=== PATIENT | female | born 2000 | race Caucasian/White ===

== ENCOUNTER 2025-07-17 22:11 | Emergency (ER) | payer BC, SELFPAY ==
[2025-07-17 22:14] VITALS: BP 139/80
[2025-07-17 22:30] LABS: Urine Character Clear (Clear)
[2025-07-17 22:47] LABS: Urine Red Blood Cell 0-2 /HPF (0-2); Urine White Cell 0-2 /HPF (0-5)
[2025-07-17 23:59] VITALS: BMI 23.9
[2025-07-18 00:44] LABS: Hematocrit 42.3 % (37.0-47.0); Hemoglobin 14.3 g/dL (12.0-16.0); Mean Corp Hgb Conc. 33.8 g/dL (33.0-37.0); Mean Corpuscular Volume 92.4 fL (81.0-99.0); Nucleated Red Blood Cells % 0 %; Platelet Count 163 10^3/uL (130-400); Red Cell Dist. Width 13.0 % (11.5-14.5)
[2025-07-18 00:45] LABS: HCG, Serum Qualitative Screen Negative
[2025-07-18 00:55] LABS: ALT (SGPT) 23 U/L (0-35); AST (SGOT) 25 U/L (14-36); Albumin 4.9 g/dl (3.5-5.0); Alkaline Phosphatase 69 U/L (38-126); Blood Urea Nitrogen 14 mg/dl (7-17); Calcium 9.9 mg/dl (8.4-10.2); Carbon Dioxide 29 mmol/L (22-30); Chloride 102 mmol/L (98-107); Estimated Creatinine Clearance 109 ml/min; Glucose 99 mg/dl (70-99); Potassium 4.0 mmol/L (3.5-5.1); Sodium 138 mmol/L (135-145); Total Protein 7.4 g/dl (6.3-8.2); eGFR > 60.00
[2025-07-18 01:01] LABS: COVID-19 Antigen Negative (Negative)
--- NOTE | 2025-07-18 01:15 | ED.GENMED ---
History of Present Illness
General
Chief Complaint: Urinary Symptoms
Source: patient and family
Exam Limitations: none
Time Seen by Provider: 07/17/25 23:42
Nursing documentation reviewed up to this point in time: agreed with
History of Present Illness
History of Present Illness:
Note:
CHIEF COMPLAINT(S)
- Fever and dysuria
HISTORY OF PRESENT ILLNESS
The patient is a 24-year-old female presenting with symptoms indicative of a urinary tract infection (UTI) since Monday. She reports initially experiencing significant dysuria and difficulty sleeping, which prompted a visit to urgent care. At
urgent care, a urine analysis did not reveal bacteriuria, but a culture was performed. The patient was initially prescribed nitrofurantoin. However, she noted that the medication alleviated symptoms only partially; she continued to experience
suprapubic discomfort. Consequently, the treatment was switched to amoxicillin, which she took this morning at 7 AM, and later to sulfamethoxazole/trimethoprim at 9 AM. Following the medication switch, the patient began feeling lightheaded,
flu-like, and developed a low-grade fever of approximately 99�F along with skin flushing sensations. She consulted her primary care provider, who recommended the switch to sulfamethoxazole/trimethoprim. They advised waiting for urine culture results
before making further changes to her medication regimen. The patient was concerned whether her symptoms were a reaction to the medications or an extension of the infection.
The healthcare provider advised performing flu and COVID testing as a precaution and discussed the potential for drawing blood work to assess for sepsis-like syndrome due to her immunocompromised status. The plan included awaiting the results of the
urine culture, and if unavailable, continuing nitrofurantoin under the assumption of an adverse reaction to sulfamethoxazole/trimethoprim, which might settle post discontinuation.
PAST MEDICAL AND SURGICAL HISTORY
No additional details provided.
EXTERNAL RECORDS REVIEWED
Petition notes that the last urine culture had not revealed bacterial growth but was pending re-evaluation. No further external records were mentioned.
SOCIAL HISTORY
The patient has a history of immunocompromise (specific nature undisclosed).
-
Dysuria, suprapubic discomfort.
- Constitutional: Low-grade fever, flu-like symptoms.
- Neurological: Lightheadedness.
- Skin: Flushing sensations.
PHYSICAL EXAM
General: Alert, in no acute distress.
Skin: Warm, dry.
Head: Normocephalic, atraumatic.
Neck: Supple, trachea midline.
Eyes, Ears, Nose, Mouth and Throat: Oral mucosa moist.
Cardiovascular: Normal peripheral perfusion, No edema.
Respiratory: Respirations are non-labored.
Gastrointestinal: Abdomen nondistended.
Back: Normal range of motion, Normal alignment.
Musculoskeletal: Normal range of motion, normal strength.
Neurological: Alert and oriented to person, place, time, and situation. No focal neurological deficit observed.
Psychiatric: Cooperative, appropriate mood & affect.
PROBLEM LIST
Acute Problems:
- Urinary tract infection
- Possible medication reaction
- Low-grade fever
PLAN
- Perform flu and COVID testing.
- Consideration for blood work to check for sepsis-related syndrome due to patients immunocompromised status.
- Await urine culture results to determine the effectiveness of antibiotic treatment and adjust accordingly.
- Continue current treatment regimen if no culture results are available and manage symptoms as an adverse medication reaction.
- Educate patient on symptoms of worsening condition and when to seek further medical attention.
DIFFERENTIAL DIAGNOSIS
The Differential Diagnosis includes, in no particular order and is not limited to:
- Urinary tract infection
- Medication reaction to sulfamethoxazole/trimethoprim
- Viral infection, possibly flu or COVID-19
- Sepsis or systemic inflammatory response syndrome
- Pyelonephritis
- Interstitial cystitis
- Pelvic inflammatory disease
- Ovarian cyst or torsion
- Acute appendicitis
- Gastroenteritis
Disposition:
SUMMARY OF ENCOUNTER
A 24-year-old female presented with symptoms indicative of a urinary tract infection, including urinary frequency and other related signs. Initially, she was started on amoxicillin in urgent care and was later switched to nitrofurantoin and
eventually advised by her family doctor to switch back to sulfamethoxazole/trimethoprim. The patient complained of flushing and a low-grade fever. She has a history of multiple sclerosis and requested lab work. Flu and COVID tests were negative, and
previous lab work was normal. Urine culture results from urgent care are still pending. A urine culture was sent from the emergency department. The recommendation is for the patient to switch back to nitrofurantoin while awaiting culture results and
sensitivity testing to determine the appropriate antibiotic treatment.
ASSESSMENT
The patient shows symptoms consistent with a urinary tract infection and possibly a reaction to the medication sulfamethoxazole/trimethoprim, indicated by flushing and low-grade fever. Her immunocompromised status due to multiple sclerosis
necessitates cautious evaluation.
PLAN
The plan includes switching the antibiotic treatment back to nitrofurantoin while awaiting urine culture results from both urgent care and the emergency department to confirm bacterial sensitivity and optimize antibiotic selection.
INDEPENDENT REVIEW OF LABS AND INTERPRETATION OF TESTS
My independent review of the lab work indicates that the flu and COVID-19 tests are negative, and previous lab results were normal.
PATIENT EDUCATION AND COUNSELING
The patient was educated on recognizing symptoms of worsening infection and the importance of following up on urine culture results to ensure proper antibiotic therapy. She was advised to monitor her symptoms closely and report any significant
changes or reactions.
FOLLOW-UP INSTRUCTIONS
The patient should follow up with her primary care provider or seek further medical attention if symptoms worsen or do not improve after resuming nitrofurantoin.
MEDICATION RECONCILIATION
The patient was prescribed nitrofurantoin while awaiting further urine culture results to determine appropriate treatment. She was previously on sulfamethoxazole/trimethoprim, which was discontinued due to suspected adverse reactions.
MEDICAL DECISION MAKING
- Number and Complexity of Problems Addressed: Chronic conditions affecting care include multiple sclerosis. Differential diagnoses include urinary tract infection, medication reaction to sulfamethoxazole/trimethoprim, viral infection, sepsis,
pyelonephritis, interstitial cystitis, pelvic inflammatory disease, ovarian cyst or torsion, acute appendicitis, and gastroenteritis.
- Data:
- Category 1: Non-emergency department records reviewed. Previous lab work normal, and flu and COVID tests negative. Awaiting urine culture results.
- Category 3: Management discussed with the patient regarding the optimal antibiotic treatment pending sensitivity results.
- Risk: Consideration of Admission/Observation: Escalation of care including admission/observation was considered given the complexity and risk of the patients presenting complaint, exam findings, and underlying comorbidities. However, ultimately, I
feel the patient is safe for outpatient management with close follow-up. Reasoning: Work-up reassuring, does not reveal any acute life/organ threatening processes, patients symptoms well controlled upon reevaluation, reexamination is reassuring,
vitals are stable, patient agreeable with discharge, reliable for follow-up.
DIAGNOSIS
- Urinary tract infection, unspecified (N39.0)
- Adverse reaction to drug, unspecified (T88.7XXA)
- Multiple sclerosis (G35)
Past History
Past History
ED Past Medical History: Asthma (Exercised induced )
Phy Exam
Physical Exam
Physical Exam:
.
Course
Orders/Labs/Results
Orders:
Orders
07/17/25 22:24
Urinalysis Reflex To Culture Urgent
Date Specimen was Collected: 07/17/25
Time Specimen was Collected: 22:20
Urine Microscopic Reflex Cult Urgent
Urine Culture Urgent
[place] Source: Urine
Specimen Description:
Obtained by: Bladder
Date Specimen was Collected: 07/18/25
Time Specimen was Collected: 00:33
07/17/25 23:47
Add On - Microbiology Urgent
Tests Added?: urine culture
07/18/25 00:20
Test Result ONCE
07/18/25 00:24
COVID-19 Antigen Urgent
Source: Nasal Swab
Complete Blood Count/With Diff Urgent
Comprehensive Metabolic Panel Urgent
HCG, Serum Qualitative Screen Urgent
Influenza A+B Rapid Molecular Urgent
[place] Source: Nasal Swab
Specimen Description:
Abnormal Lab Results
07/17/25 07/18/25
22:24 00:24
MCH 31.2 H pg
(27.0-31.0)
Absolute Monos (auto) 1.3 H 10^3/uL
(0.1-0.6)
Lymphocytes % 15.3 L %
(20.5-51.1)
Monocytes % 15.5 H %
(1.7-9.3)
Urine Bacteria (Reflex) Few A
(Negative)
Urine Albumin (Reflex) 1+ A
(Neg - Trace)
07/18/25 00:24
07/18/25 00:24
Vital Signs
Initial and Last Documented VS:
Initial Vital Signs
Pulse Resp BP Pulse Ox
82 16 139/80 100
07/17/25 22:14 07/17/25 22:14 07/17/25 22:14 07/17/25 22:14
Last Documented Vital Signs
Temp Pulse Resp BP Pulse Ox
99.6 F 82 16 139/80 100
07/17/25 22:16 07/17/25 22:14 07/17/25 22:14 07/17/25 22:14 07/17/25 22:14
*Pulse Oximetry
SaO2: 100
Oxygen Mode of Delivery: Room air
Patient hypoxic: no
*Critical Care Note
Total Time (30-74mins, 75-104mins- exclusive of procedures): Not Applicable
ED Attending Note
-
Portions of this chart may have been created with voice recognition software.� Occasional wrong word or��sound alike� substitutions may have occurred due to the inherent limitations of voice recognition software.
Discharge Plan
Departure
Patient Disposition: Home (Routine Discharge)
Date of Disposition: 07/18/25
Time of Disposition: 01:17
Patient with high blood pressure during this ER visit?: Yes
Condition: Good
Discharge Problem:
UTI (urinary tract infection)
Instructions: Urinary Tract Infection, Adult (DC), BLOOD PRESSURE
Prescriptions:
No Action
prednisone 20 mg tablet
40 mg PO DAILY Qty: 10 0RF
Referrals:
Tonio Dunn DO [Family Provider, Internal Medicine]
Activity Restrictions/Additional Instructions:
Thank You for choosing [facility].
It was a pleasure meeting you and taking part in your care. We hope for your continued healing and wellness.
Please read discharge instructions in their entirety. However, they are for general education and may not describe your exact diagnosis at discharge. Information on your ER visit and medical conditions were discussed with you along with appropriate
follow up information...
If indicated, please take your medications as instructed and indicated on discharge paperwork.
Please schedule a follow up appointment as directed. Call to schedule an appointment
Please return to the emergency department with ANY change in, persisting, or worsening of symptoms. If any of your symptoms do not improve, or persist, or become more severe within 6-12 hours, please return to the emergency department for further
care.
Please return to the emergency department if you develop a headache, neck pain/stiffness, fever greater than 100.4F, chest pain, shortness of breath, persistent nausea, vomiting, slurred speech, difficulty walking, numbness/tingling, weakness, signs
of infection or any other symptoms that are worrisome to you.
If you have any questions or concerns please do not hesitate to call the Hospital at .
Interventions
Interventions:
*Risk Screen - Suicide Last Done: 07/17/25 23:59
*General Assessment Last Done: 07/17/25 23:59
*Neglect/Abuse Screening Last Done: 07/17/25 23:59
*ED- Fall Risk Assessment Last Done: 07/17/25 23:59
*ED COVID-19 Vaccine History Last Done: 07/17/25 23:59
*ED Influenza Vaccine History Last Done: 07/17/25 23:59
ED-Female Genitourinary Assessment Last Done: 07/18/25 00:34
Discharge Date and Time
Print Language: HUNGARIAN
== END 2025-07-18 01:28 | disposition home or self-care (01) ==
LOC: EMR 22:11
PROVIDERS: Emergency Medicine; EMERGENCY PHYSICIAN Student in an Organized Health Care Education/Training Program; FAMILY PHYSICIAN Internal Medicine
DX: N39.0 Urinary tract infection, site not specified (principal); R03.0 Elevated blood-pressure reading, without diagnosis of hypertension; G35.D Multiple sclerosis, unspecified; J45.990 Exercise induced bronchospasm
CPT/HCPCS: 99283; 80053; 81003; 81015; 84703; 85025; 87086; 87502; 87811

== ENCOUNTER 2025-07-20 08:54 | Emergency (ER) | payer BC, SELFPAY ==
[2025-07-20 08:57] VITALS: BP 112/72
--- NOTE | 2025-07-20 09:06 | ED.GENMED ---
History of Present Illness
General
Chief Complaint: Urinary Symptoms
Time Seen by Provider: 07/20/25 09:03
History of Present Illness
History of Present Illness:
FOCUSED PAST MEDICAL HISTORY
- MS
REVIEW OF OLD RECORDS
- The patient was seen here 3 nights ago after started having significant dysuria 4 days ago. She initially was at urgent care and was initially on amoxicillin and nitrofurantoin and then later Bactrim by PMD
- I reviewed the urine culture from 07/18 that showed no growth
- When she was here 2 days ago, her white count was normal and urinalysis did not show any clear sign of infection
Note:
CHIEF COMPLAINT(S)
Burning with urination, fever, body aches.
HISTORY OF PRESENT ILLNESS
The patient is a 24-year-old female presenting with symptoms initially suggestive of a urinary tract infection (UTI). On Monday night, the patient began experiencing urinary urgency and pain post-urination without initial burning during
micturition. By morning, symptoms had progressed to include generalized body aches, leading to a switch in antibiotics from amoxicillin to Nitrofurantoin (Macrobid) by an on-call physician. The patient reported experiencing flushing and a
low-grade fever of 99�F later that day. Subsequent changes in antibiotic therapy included initiating Trimethoprim-sulfamethoxazole (Bactrim), but this was short-lived due to adverse effects and the need to revert to Nitrofurantoin.
By Monday, the patients fever had escalated, prompting further evaluation in the emergency room where repeat Nitrofurantoin therapy was recommended. On Monday night and into Monday, the patients fever yi to 101�F accompanied by significant
burning during urination, prompting a return to the ER.
Additional testing, including a urinalysis and urine culture, revealed negative results. Blood tests from a previous visit indicated normal white blood cell counts. No vaginal discharge is reported, and recent flu and COVID-19 tests returned
negative results. The patient also reports chronic issues with UTIs, although the last episode was a year ago. The patient expresses frustration with ongoing symptoms despite multiple antibiotics, and there are concerns expressed by both the patient
and the healthcare team about potential underlying conditions, including a possible kidney or bladder issue.
The emergency team discussed performing a CT scan without contrast to assess for possible kidney stones or other abdominal pathology, considering the unexplained nature of the symptoms and ongoing fever. A test, as well as a blood culture
test, is planned to rule out other conditions.
EXTERNAL RECORDS REVIEWED
Urine culture was negative, and previous bloodwork showed a normal white blood cell count.
CHRONIC MEDICAL CONDITIONS SIGNIFICANTLY AFFECTING CARE
Multiple Sclerosis, history of recurrent urinary tract infections.
SOCIAL HISTORY
The patient reports being in good health overall, with a history of exercising regularly and maintaining a healthy lifestyle.
MEDICATIONS
The patient has been taking Nitrofurantoin (Macrobid), Trimethoprim-sulfamethoxazole (Bactrim), and Amoxicillin for current symptoms.
REVIEW OF SYSTEMS
- Genitourinary: Urgency, pain post-urination, recurrent urinary tract infections.
- Constitutional: Fever, body aches, feeling flushed.
- Respiratory: No respiratory symptoms present.
- Musculoskeletal: General aches.
PHYSICAL EXAM
General: Alert, mild distress.
Skin: Warm, dry.
Head: Normocephalic, atraumatic.
Neck: Supple, trachea midline.
Eye, Ears, Nose, Mouth, and Throat: Oral mucosa moist.
Cardiovascular: Normal peripheral perfusion, No edema.
Respiratory: Respirations are non-labored.
Gastrointestinal: Abdomen nondistended.
: There were 2 lesions that were not consistent with herpes but look more like folliculitis/ingrown hair closer to the buttock region and not involving the vulva, there may be a slight increased amount of physiologic appearing white discharge
there is no foul-smelling odor nor purulence
Back: Normal range of motion, Normal alignment.
Musculoskeletal: Normal ROM, normal strength.
Neurological: Alert and oriented to person, place, time, and situation. No focal neurological deficit observed.
Psychiatric: Cooperative, appropriate mood & affect.
PLAN
- Proceed with CT scan without contrast to evaluate for kidney stones or other abdominal pathology.
- Perform blood cultures to assess for potential bloodstream infections.
- Repeat bloodwork to evaluate any changes in the patients condition.
- Continue current medications and assess response post-evaluation.
DIFFERENTIAL DIAGNOSIS
The Differential Diagnosis includes, in no particular order and is not limited to:
- Urinary tract infection
- Pyelonephritis
- Urolithiasis (kidney stones)
- Interstitial cystitis
- Pelvic inflammatory disease
- Vaginitis
- Appendicitis
- Diverticulitis
- Lower respiratory tract infection
- Viral infection (non-respiratory)
RADIOLOGY
- CAT scan of the abdomen pelvis showed no sign of kidney stones
LABS
- White count and hemoglobin are normal, lactic is 1.1, urinalysis shows 0-2 white cells hCG negative
UPDATE
-SUMMARY OF ENCOUNTER
The patient, a 24-year-old female, presented to the emergency department with symptoms initially suggestive of a urinary tract infection, including fever and burning during urination. A thorough assessment was conducted, including a review of
previous lab results and a CT scan. Blood tests showed normal white blood cell count and lactic acid level, which are indicators against severe infections such as sepsis. The urinalysis was normal, indicating no sign of a urinary tract infection.
The CT scan revealed no signs of kidney stones or other anatomical abnormalities. Tests for sexually transmitted infections like Trichomonas and herpes were conducted, with the former returning negative and the latter still pending. After discussing
with the patient, it was decided to continue with the current Nitrofurantoin (Macrobid) treatment instead of initiating Cephalexin, as there was no clear indication of a bacterial infection. Pyridium was offered to relieve urinary discomfort.
ASSESSMENT
Symptoms suggest a urinary tract issue, but negative urinalysis and imaging point away from infection or structural issues. Possible non-infectious causes such as interstitial cystitis or other sources of inflammation were considered.
PLAN
- Continue current Nitrofurantoin (Macrobid) treatment.
- Prescription for Pyridium to alleviate urinary discomfort, acknowledging the side effect of orange-colored urine.
- Follow-up call scheduled for Monday to review pending test results and further adjust the management plan if needed.
INDEPENDENT REVIEW OF LABS AND INTERPRETATION OF TESTS
My independent review of the CBC indicates a normal white blood cell count. My independent review of lactic acid level indicates normalcy, both of which point against severe infection such as sepsis. My independent review of urinalysis indicates no
signs of urinary tract infection. My independent interpretation of the CT scan is the absence of kidney stones or anatomical abnormalities.
PATIENT EDUCATION AND COUNSELING
The patient was informed about the potential outcomes of pending tests and reassured that current findings do not suggest a severe infection. The effects of Pyridium and the importance of following up on test results were discussed.
FOLLOW-UP INSTRUCTIONS
The patient is advised to wait for a follow-up call on Monday to discuss any new findings or adjustments in the treatment plan based on the pending test results.
MEDICATION RECONCILIATION
- Nitrofurantoin (Macrobid): Continue current treatment.
- Pyridium: Prescribed for symptom relief (urinary discomfort), with counseling on potential side effects.
MEDICAL DECISION MAKING
- Number and Complexity of Problems Addressed: Chronic conditions affecting care include multiple sclerosis and history of recurrent urinary tract infections.
Differential diagnoses considered include urinary tract infection, pyelonephritis, urolithiasis, interstitial cystitis, pelvic inflammatory disease, vaginitis, appendicitis, diverticulitis, lower respiratory tract infection, and viral infection.
-Data:
Category 1
The interpretation of a CT scan revealed no signs of kidney stones or anatomical abnormalities.
Category 2
Review of prior external notes showed normal white blood cell count and negative urine culture from previous encounters.
Category 3
No discussions with additional healthcare providers were required.
-Risk:
Prescription medication was managed with caution, considering the lack of evidence supporting bacterial infection and the patients presentation. Consideration of Admission/Observation: Escalation of care including admission/observation was
considered given the complexity and risk of the patients presenting complaint. However, ultimately I feel the patient is safe for outpatient management with close follow-up. Reasoning: Work-up reassuring, does not reveal any acute life/organ
threatening processes, patients symptoms well controlled upon reevaluation, reexamination is reassuring, vitals are stable, patient agreeable with discharge, reliable for follow-up.
DIAGNOSIS
- Acute cystitis without hematuria [ICD-10: N30.00]
- Pain, unspecified [ICD-10: R52]
Past History
Past History
ED Past Medical History: Asthma (Exercised induced )
Phy Exam
Physical Exam
Physical Exam:
See HPI
Course
Orders/Labs/Results
Orders:
Orders
07/20/25 09:13
Test Result ONCE
07/20/25 09:16
HCG, Urine Qualitative Screen Urgent
Date Specimen was Collected: 07/20/25
Time Specimen was Collected: 09:13
Urinalysis Reflex To Culture Urgent
Date Specimen was Collected: 07/20/25
Time Specimen was Collected: 09:13
Urine Microscopic Reflex Cult Urgent
07/20/25 09:25
CT Abd/pel Without Iv Or Oral Urgent
Comment:
Reason For Exam: fevers dysuria lower pain failing abx
07/20/25 09:31
Basic Metabolic Panel Urgent
Complete Blood Count/With Diff Urgent
Lactic Acid Q4H
Comment: CANCEL 2nd LACTIC ACID IF 1st LACTIC ACID IS LESS THAN 2
Blood Culture Q30M
[place] Source: Blood/Venous
Specimen Description:
07/20/25 09:44
0.9% Sodium Chloride 1000 ml [Nss] 1,000 ml IV BOLUS
Ketorolac [Toradol] 15 mg IV NOW STA
07/20/25 10:01
Blood Culture Q30M
[place] Source: Blood/Venous
Specimen Description:
07/20/25 10:32
Herpes Culture Reflex - Typing Urgent
[place] Source: Genital
Specimen Description:
Source:: LABIA
Date Specimen was Collected: 07/20/25
Time Specimen was Collected: 10:29
Chlamydia/GC by PCR Urgent
[place] Source: Endo-Cervical
Specimen Description:
Source:: CERVIX
Date Specimen was Collected: 07/20/25
Time Specimen was Collected: 10:29
Trichomonas - Wet Prep Urgent
[place] Source: Vagina
Specimen Description:
Date Specimen was Collected: 07/20/25
Time Specimen was Collected: 10:29
07/20/25 11:29
Vaginitis Panel by [facility] [S] Urgent
07/20/25 13:30
Lactic Acid Q4H
Comment: CANCEL 2nd LACTIC ACID IF 1st LACTIC ACID IS LESS THAN 2
Abnormal Lab Results
07/20/25 07/20/25
09:16 09:31
Absolute Lymphs (auto) 1.0 L 10^3/uL
(1.2-3.4)
Absolute Monos (auto) 0.8 H 10^3/uL
(0.1-0.6)
Lymphocytes % 20.1 L %
(20.5-51.1)
Monocytes % 15.7 H %
(1.7-9.3)
Urine Albumin (Reflex) 1+ A
(Neg - Trace)
07/20/25 09:31
07/20/25 09:31
Vital Signs
Initial and Last Documented VS:
Initial Vital Signs
Temp Pulse Resp BP Pulse Ox
37.7 C 100 16 112/72 98
07/20/25 08:57 07/20/25 08:57 07/20/25 08:57 07/20/25 08:57 07/20/25 08:57
Last Documented Vital Signs
Temp Pulse Resp BP Pulse Ox
37.7 C 71 17 127/76 99
07/20/25 08:57 07/20/25 10:30 07/20/25 10:30 07/20/25 10:30 07/20/25 10:30
*Pulse Oximetry
SaO2: 98
Oxygen Mode of Delivery: Room air
Patient hypoxic: no
*Critical Care Note
Total Time (30-74mins, 75-104mins- exclusive of procedures): Not Applicable
ED Attending Note
-
Portions of this chart may have been created with voice recognition software.� Occasional wrong word or��sound alike� substitutions may have occurred due to the inherent limitations of voice recognition software.
Discharge Plan
Departure
Patient Disposition: Home (Routine Discharge)
Date of Disposition: 07/20/25
Time of Disposition: 12:10
Patient with high blood pressure during this ER visit?: Yes
Discharge Problem:
Dysuria
Instructions: BLOOD PRESSURE
Prescriptions:
New
phenazopyridine [Pyridium] 200 mg tablet
200 mg PO TID PRN (Reason: Pain) Qty: 6 0RF
No Action
prednisone 20 mg tablet
40 mg PO DAILY Qty: 10 0RF
Referrals:
Zachery Alvarez Jr., MD [Active, Urology]
UNKNOWN - PT DOES,NOT KNOW [Family Provider]
Activity Restrictions/Additional Instructions:
I have given you the contact information for your urologist to follow-up with if your symptoms persist. However your urinalysis does not show any clear signs of infection, you have 0-2 white cells per high-powered field in the urine which is
entirely normal. CAT scan of the abdomen pelvis shows no sign of kidney stones. Trichomonas testing shows no sign of trichomonas. Blood cultures are pending. Lactic acid and white blood cell count are normal. I am sending a urine for Pyridium
to your pharmacy to help with the discomfort�this will turn your urine orange.
Interventions
Interventions:
*Risk Screen - Suicide Last Done: 07/20/25 08:57
*General Assessment Last Done: 07/20/25 09:35
*Neglect/Abuse Screening Last Done: 07/20/25 08:57
*ED- Fall Risk Assessment Last Done: 07/20/25 11:06
*ED COVID-19 Vaccine History Last Done: 07/20/25 09:35
*ED Influenza Vaccine History Last Done: 07/20/25 09:35
ED-Female Genitourinary Assessment Last Done: 07/20/25 09:35
Discharge Date and Time
Print Language: COMORAN
[2025-07-20 09:48] LABS: Urine Character Clear (Clear)
[2025-07-20] MEDS: NSS 1000 IV (09:50)
[2025-07-20] MEDS: TORADOL IV (09:52)
[2025-07-20 09:53] LABS: HCG, Urine Qualitative Screen Negative
[2025-07-20 09:58] LABS: Blood Urea Nitrogen 11 mg/dl (7-17); Calcium 9.3 mg/dl (8.4-10.2); Carbon Dioxide 26 mmol/L (22-30); Chloride 103 mmol/L (98-107); Glucose 95 mg/dl (70-99); Potassium 4.4 mmol/L (3.5-5.1); Sodium 137 mmol/L (135-145); eGFR > 60.00
[2025-07-20] MEDS: TORADOL 15 MG IV (10:01)
[2025-07-20 10:22] LABS: Urine Squamous Cell >30 /LPF (Few)
[2025-07-20 10:23] LABS: Urine Red Blood Cell 0-2 /HPF (0-2); Urine White Cell 0-2 /HPF (0-5)
[2025-07-20 10:24] LABS: Hematocrit 44.8 % (37.0-47.0); Hemoglobin 14.8 g/dL (12.0-16.0); Mean Corp Hgb Conc. 33.0 g/dL (33.0-37.0); Mean Corpuscular Volume 93.5 fL (81.0-99.0); Nucleated Red Blood Cells % 0 %; Platelet Count 148 10^3/uL (130-400); Red Cell Dist. Width 13.2 % (11.5-14.5)
[2025-07-20 10:30] VITALS: BP 127/76
[2025-07-20 12:46] VITALS: BP 121/78
[2025-07-22 18:18] LABS: Bacterial Vaginosis by TMA Negative; Candida glabrata by TMA Negative; Candida species by TMA Negative; Trichomonas vaginalis by TMA Negative
== END 2025-07-20 12:10 | disposition home or self-care (01) ==
LOC: EMR 08:54
PROVIDERS: EMERGENCY PHYSICIAN Emergency Medicine
DX: N30.00 Acute cystitis without hematuria (principal); G35.D Multiple sclerosis, unspecified
CPT/HCPCS: 96374; 96361; 99284; 74176; 80048; 81003; 81015; 81025; 81513; 83605; 85025; 87040; 87210; 87255; 87481; 87491; 87591; 87661